=== PATIENT | female | born 1990 | race Caucasian/White ===

== ENCOUNTER → 2016-09-24 | Outpatient (CLI) | payer BC ==
[~2016-09-24] MED LIST: AMIT50TA95 PO; HYDR1TAB73 PO
--- NOTE | 2016-09-24 09:41 | DI ---
Indication: ITS.REASON: G93.5 COMPRESSION OF BRAIN PROCEDURE: MRI BRAIN W/O CONTRAST: Encounter: Subsequent Comparisons: Brain MRI dated December 13, 2014 Technique: Multiplanar, multisequence, MR imaging of the head without contrast was acquired. FINDINGS: Interval suboccipital decompression craniotomy. 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 The ventricles are unchanged. The brain stem, cerebellum, and cerebral hemispheres have a normal morphologic appearance as well as MR signal intensity on all pulse sequences. There are no areas of restricted diffusion on diffusion weighted imaging to suggest an acute infarct. There is no evidence of an intracranial mass lesion, intracranial hemorrhage, or hydrocephalus. The visualized portions of the orbits, calvarium, paranasal sinuses, and skull base otherwise demonstrate no significant abnormality. IMPRESSION: Interval suboccipital decompression surgery. No acute intracranial abnormality. .
== END ==
LOC: IMA 07:45
PROVIDERS: ATTEND Registered Nurse
DX: G93.5 Compression of brain (principal); Z98.890 Other specified postprocedural states